=== PATIENT | female | born 1945 | race Caucasian/White ===

== ENCOUNTER 2017-07-18 10:55 | Outpatient (CLI) | payer MEDICARE, OTHER ==
[2017-07-18] MEDS ORDERED: Iopamidol 370 76% 100 ML VIAL ONE (14:54)
== END 2017-07-18 10:56 | disposition home or self-care (01) ==
LOC: BICCT 10:55
PROVIDERS: ATTEND Surgery
DX: R91.8 Other nonspecific abnormal finding of lung field (principal)
CPT/HCPCS: 71260; 82565

== ENCOUNTER 2017-08-25 09:53 | Outpatient (CLI) | payer MEDICARE, OTHER ==
[~2017-08-25 09:53] MED LIST: Iopamidol 370 76% 100 ML VIAL ONE
--- NOTE | 2017-08-25 15:11 | CT ---
ABDOMEN AND PELVIS CT SCAN WITH IV CONTRAST: HISTORY: A 72-year-old male with left lower quadrant pain for five days. History of diverticulitis. Prior ch olecystectomy. FINDINGS: The lung bases appear clear of acute process. A very small amount of pericardial fluid. A small hia cory hernia. Status post cholecystectomy without ductal dilatation. Unremarkable liver. Pancreas, s pleen, and adrenal glands are unremarkable. Possible very tiny, nonobstructing right renal calculus. Small bilateral renal cysts. No evidence for obstructing genitourinary calculus. There is scatter ed colonic diverticulosis. In the region of the mid left colon, there is some minimal pericolonic fa t stranding and some mild focal wall thickening, which certain is a finding that can be seen with ass ociated minimal acute diverticulitis. No evidence of extraluminal gas. No evidence for a drainable abscess or other significant fluid collection. No CT evidence for acute appendicitis. IMPRESSION: 1. Colonic diverticulosis with a small focus in the mid left colon of some minimal wall thickening a nd pericolonic fat stranding, evidence for minimal early diverticulitis, without evidence of extralum inal gas, drainable abscess, or other fluid collection. 2. Small bilateral renal cysts with probably very tiny punctate right lower pole renal calculus. 3. Small hiatal hernia. 4. Other findings as above. POS: [facility]
== END 2017-08-25 09:54 | disposition home or self-care (01) ==
LOC: SCSCT 09:53
PROVIDERS: ATTEND Surgery
DX: R10.9 Unspecified abdominal pain (principal); K57.30 Diverticulosis of large intestine without perforation or abscess without bleeding; N28.1 Cyst of kidney, acquired; K44.9 Diaphragmatic hernia without obstruction or gangrene; K57.92 Diverticulitis of intestine, part unspecified, without perforation or abscess without bleeding; Z90.49 Acquired absence of other specified parts of digestive tract; Z87.19 Personal history of other diseases of the digestive system
CPT/HCPCS: 74177

== ENCOUNTER 2017-09-26 10:14 | Inpatient (IN) | payer MEDICARE, OTHER ==
[2017-09-23 12:55] VITALS: BMI 34.2
[2017-09-26] MEDS ORDERED: Dexamethasone 4 mg/ml Vial ONE (10:26)
[2017-09-26] MEDS ORDERED: Midazolam HCl 2 mg/2 ml Vial ONE (10:26)
[2017-09-26] MEDS ORDERED: Fentanyl 100 MCG/2 ML VIAL ONE ×5 (10:26→17:39)
[2017-09-26] MEDS ORDERED: Lidocaine 1% (PF) 30 ML VIAL ONE (10:26)
[2017-09-26] MEDS ORDERED: Bupivacaine/Epinephrine 0.25% 30 ML VIAL ONE (11:03)
[2017-09-26] MEDS ORDERED: Sodium Chloride 0.9% 100 ML ONE (11:17)
[2017-09-26] MEDS ORDERED: cefOXitin 2 GM VIAL ONE ×2 (11:17→13:58)
[2017-09-26 11:31] LABS: #Eosinphils 0.1 thou/uL (0.0-0.7); #Lymphocytes 1.7 thou/uL (1.20-3.40); #Monocytes 0.5 thou/uL (0.11-0.59); #Neutrophils 2.8 thou/uL (1.40-6.50); %Basophils 0.5 % (0.0-1.0); %Eosinophils 1.2 % (0.0-10.0); %Lymphocytes 33.3 % (21.0-51.0); %Neutrophils 56.1 % (42.0-75.0); Mean Corpuscular HGB CONC 34.7 g/dL (32.0-36.0); Mean Corpuscular Hemoglobin 32.7 pg (27.0-31.0); Mean Corpuscular Volume 94.4 fL (78.0-98.0); Mean Platelet Volume 7.5 fL (7.4-10.4); Platelet Count 191 thou/uL (130-400); RBC Distribution Width 12.2 % (11.5-14.5); Red Blood Cell (RBC) Count 3.98 mill/uL (4.20-5.40); White Blood Cell (WBC) Count 5.1 thou/uL (4.8-10.8)
[2017-09-26] MEDS ORDERED: PHENYLEPHRINE-NS 100 MCG/ML 10 ML SYRINGE ONE (11:38)
[2017-09-26] MEDS ORDERED: PROPOFOL 200 MG/20 ML VIAL ONE (11:38)
[2017-09-26] MEDS ORDERED: Glycopyrrolate 0.2 MG/ML 5 ML SYRINGE ONE (11:38)
[2017-09-26] MEDS ORDERED: Lidocaine 1% PF 5 ML VIAL ONE (11:38)
[2017-09-26] MEDS ORDERED: Succinylcholine Chloride 20 MG/ML 10 ml SYRINGE FS ONE (11:38)
[2017-09-26] MEDS ORDERED: Dexmedetomidine 200 MCG/2 ML VIAL ONE (11:43)
[2017-09-26 12:15] LABS: Anion Gap 14 mmol/L (10-20); BUN (Urea Nitrogen) 14 mg/dL (9.8-20.1); Calc. Creatinine Clearance 109 mL/min (70-130); Calcium 9.6 mg/dL (7.8-10.44); Carbon Dioxide 22 mmol/L (23-31); Chloride 110 mmol/L (98-107); Estimated GFR-MDRD 81; Glucose 103 mg/dL (83-110); Potassium 3.6 mmol/L (3.5-5.1); Sodium 142 mmol/L (136-145)
[2017-09-26] MEDS ORDERED: Ondansetron HCl/PF 4 MG/2 ML Vial IVP PRN ×3 (12:28→16:04)
[2017-09-26] MEDS ORDERED: Promethazine HCl 25 MG/ML VIAL SLOW IVP PRN ×2 (12:28→15:21)
[2017-09-26] MEDS ORDERED: Promethazine HCl 25 MG/ML VIAL IM PRN ×2 (15:21→16:04)
[2017-09-26] MEDS ORDERED: hydrALAZINE 20 MG/ML VIAL SLOW IVP PRN (16:04)
[2017-09-26] MEDS ORDERED: Nitroglycerin 0.4 MG TAB (25 Tab Bottle) SL PRN (16:09)
[2017-09-26] MEDS ORDERED: LEVALBUTEROL TARTRATE INH PRN (18:15)
[2017-09-26] MEDS: Acetaminophen 1,000 MG in Premix Bag 1 BAG IVPB SCH ×2 (18:58→23:57)
[2017-09-26] MEDS: D5 1/2 NS w/20 mEq KCL 1,000 ML IV SCH (19:12)
[2017-09-26] MEDS: Famotidine 20 MG TAB PO SCH (20:13)
[2017-09-26] MEDS: Losartan 25 MG TAB PO SCH (20:17)
[2017-09-26] MEDS: Famotidine/PF 20 mg/2ml Vial SLOW IVP SCH (20:17)
[2017-09-26] MEDS ORDERED: AZELASTINE HCL EA NARE SCH (21:00)
[2017-09-26] MEDS ORDERED: DICLOFENAC SODIUM 1% GEL TOP SCH (21:00)
[2017-09-26] MEDS: cefOXitin 2 GM in Sodium Chloride 0.9% 100 ML IVPB SCH (21:08)
[2017-09-27] MEDS ORDERED: Levalbuterol HCl 1.25 MG/0.5 ML NEB NEB PRN (03:29)
[2017-09-27] MEDS: D5 1/2 NS w/20 mEq KCL 1,000 ML IV SCH ×4 (04:34→22:55)
[2017-09-27] MEDS: Acetaminophen 1,000 MG in Premix Bag 1 BAG IVPB SCH ×3 (05:40→13:22)
[2017-09-27] MEDS: cefOXitin 2 GM in Sodium Chloride 0.9% 100 ML IVPB SCH (05:40)
[2017-09-27 06:34] LABS: #Lymphocytes 1.1 thou/uL (1.20-3.40); #Monocytes 0.4 thou/uL (0.11-0.59); #Neutrophils 7.4 thou/uL (1.40-6.50); %Basophils 0.3 % (0.0-1.0); %Eosinophils 0.2 % (0.0-10.0); %Lymphocytes 11.8 % (21.0-51.0); %Monocytes 4.1 % (0.0-10.0); %Neutrophils 83.5 % (42.0-75.0); Anion Gap 12 mmol/L (10-20); BUN (Urea Nitrogen) 14 mg/dL (9.8-20.1); Calc. Creatinine Clearance 105 mL/min (70-130); Calcium 9.4 mg/dL (7.8-10.44); Carbon Dioxide 22 mmol/L (23-31); Chloride 109 mmol/L (98-107); Estimated GFR-MDRD 77; Glucose 202 mg/dL (83-110); Hemoglobin 12.7 g/dL (12.0-16.0); Mean Corpuscular HGB CONC 33.4 g/dL (32.0-36.0); Mean Corpuscular Volume 95.8 fL (78.0-98.0); Mean Platelet Volume 7.7 fL (7.4-10.4); Platelet Count 196 thou/uL (130-400); Potassium 4.3 mmol/L (3.5-5.1); RBC Distribution Width 12.3 % (11.5-14.5); Red Blood Cell (RBC) Count 3.97 mill/uL (4.20-5.40); Sodium 139 mmol/L (136-145); White Blood Cell (WBC) Count 8.9 thou/uL (4.8-10.8)
--- NOTE | 2017-09-27 06:58 | EKG ---
Test Reason : PREOP Blood Pressure : / mmHG Vent. Rate : 085 BPM Atrial Rate : 085 BPM P-R Int : 000 ms QRS Dur : 084 ms QT Int : 402 ms P-R-T Axes : 000 073 -87 degrees QTc Int : 478 ms Demand pacemaker; interpretation is based on intrinsic rhythm ,Ventricular paced rhythm. Atrial fibrillation with premature ventricular or aberrantly conducted complexes Low voltage QRS Prolonged QT Abnormal ECG No previous ECGs available Confirmed by JARROD CEDILLO ([id number]) on 09/27/2017 6:58:24 AM Referred By: CATALINA Confirmed By:JARROD CEDILLO
[2017-09-27] MEDS: Famotidine/PF 20 mg/2ml Vial SLOW IVP SCH ×2 (08:50→21:41)
[2017-09-27] MEDS: Enoxaparin Sodium 40 MG/0.4 ML SYRINGE SC SCH (08:50)
[2017-09-27] MEDS: Montelukast Sodium 10 mg Tablet PO SCH (08:50)
[2017-09-27] MEDS: Famotidine 20 MG TAB PO SCH ×2 (10:14→22:54)
--- NOTE | 2017-09-27 18:33 | PDOC.GSPN ---
Surgery Progress Note: Subj - Subjective Narrative: Feels OK. Hurts to walk but pain controlled at rest w ofirmev only. No flatus but feels rumbling. Mae ice chips w/o N/V. A/P) Doing well, awaiting return of bowel fxn. Prophylactic lovenox today, restart full dose tomorrow. Surgery Progress Note: Obj - Vital signs Vital signs: Vital Signs - Most Recent Temp Pulse Resp BP Pulse Ox 98.7 F 84 18 127/79 93 L 09/27/17 16:32 09/27/17 16:32 09/27/17 16:32 09/27/17 16:32 09/27/17 16:32 Surgery Progress Note: Results - Labs Result Diagrams: 09/27/17 05:37 09/27/17 05:37 Lab results: Laboratory Results - last 24 hr 09/27/17 09/27/17 05:37 05:37 WBC 8.9 RBC 3.97 L Hgb 12.7 Hct 38.1 MCV 95.8 MCH 32.0 H MCHC 33.4 RDW 12.3 Plt Count 196 MPV 7.7 Neutrophils % 83.5 H Lymphocytes % 11.8 L Monocytes % 4.1 Eosinophils % 0.2 Basophils % 0.3 Neutrophils # 7.4 H Lymphocytes # 1.1 L Monocytes # 0.4 Eosinophils # 0.0 Basophils # 0.0 Sodium 139 Potassium 4.3 Chloride 109 H Carbon Dioxide 22 L Anion Gap 12 BUN 14 Creatinine 0.74 Estimated GFR (MDRD) 77 Glucose 202 H Calcium 9.4
[2017-09-27] MEDS: Losartan 25 MG TAB PO SCH (21:42)
[2017-09-28 06:20] LABS: #Monocytes 0.6 thou/uL (0.11-0.59); #Neutrophils 7.8 thou/uL (1.40-6.50); %Basophils 0.1 % (0.0-1.0); %Eosinophils 0.1 % (0.0-10.0); %Lymphocytes 19.2 % (21.0-51.0); %Neutrophils 74.7 % (42.0-75.0); Hemoglobin 12.2 g/dL (12.0-16.0); Mean Corpuscular HGB CONC 33.6 g/dL (32.0-36.0); Mean Corpuscular Hemoglobin 32.3 pg (27.0-31.0); Mean Platelet Volume 7.5 fL (7.4-10.4); Platelet Count 193 thou/uL (130-400); RBC Distribution Width 12.4 % (11.5-14.5); Red Blood Cell (RBC) Count 3.77 mill/uL (4.20-5.40); White Blood Cell (WBC) Count 10.4 thou/uL (4.8-10.8)
[2017-09-28] MEDS: Famotidine 20 MG TAB PO SCH ×2 (09:07→20:10)
[2017-09-28] MEDS ORDERED: traMADol HCl 50 MG TAB PO PRN (09:57)
[2017-09-28] MEDS ORDERED: Enoxaparin Sodium 100 MG/ML SYRINGE SC SCH (10:15)
[2017-09-28] MEDS: Famotidine/PF 20 mg/2ml Vial SLOW IVP SCH ×2 (10:29→20:10)
[2017-09-28] MEDS: Montelukast Sodium 10 mg Tablet PO SCH (10:29)
[2017-09-28] MEDS: traMADol HCl 50 MG TAB PO PRN ×2 (10:29→17:01)
[2017-09-28] MEDS: Enoxaparin Sodium 40 MG/0.4 ML SYRINGE SC SCH (10:37)
[2017-09-28] MEDS: D5 1/2 NS w/20 mEq KCL 1,000 ML IV SCH ×2 (10:58→16:59)
--- NOTE | 2017-09-28 15:33 | PDOC.GSPN ---
Surgery Progress Note: Subj - Subjective Narrative: Patient is doing all right. Her pain is a little better than yesterday although she is still having a lot of discomfort when she gets up and moves around. She also complains of gas pains in her upper abdomen and has been burping a bit. She has felt rumblings but has not passed flatus yet. No nausea or vomiting. She is afebrile with normal vital signs. Urine output has not been quantified as she is incontinent. She does feel like she is emptying her bladder normally. H&H this morning were stable so she was started on full dose Lovenox. Her incisions are clean with some minimal bruising. Her abdomen is soft although slightly distended. Bowel sounds are present. Assessment/plan: Doing well status post sigmoid colectomy. Awaiting return of bowel function. Patient has already ambulated in the hallways 3 times today. I will check a postvoid residual to make sure that she is emptying her bladder completely. Her incontinence is mostly related to mobility issues and not having enough time to make it to the bathroom. Surgery Progress Note: Obj - Vital signs Vital signs: Vital Signs - Most Recent Temp Pulse Resp BP Pulse Ox 98.3 F 92 15 123/87 92 L 09/28/17 12:13 09/28/17 12:13 09/28/17 12:13 09/28/17 12:13 09/28/17 12:13 Surgery Progress Note: Results - Labs Result Diagrams: 09/28/17 05:50 09/27/17 05:37 Lab results: Laboratory Results - last 24 hr 09/28/17 05:50 WBC 10.4 RBC 3.77 L Hgb 12.2 Hct 36.2 MCV 96.0 MCH 32.3 H MCHC 33.6 RDW 12.4 Plt Count 193 MPV 7.5 Neutrophils % 74.7 Lymphocytes % 19.2 L Monocytes % 6.0 Eosinophils % 0.1 Basophils % 0.1 Neutrophils # 7.8 H Lymphocytes # 2.0 Monocytes # 0.6 H Eosinophils # 0.0 Basophils # 0.0
[2017-09-28] MEDS ORDERED: Zolpidem Tartrate 5 MG TAB PO PRN (15:47)
[2017-09-28] MEDS ORDERED: Furosemide 20 MG TAB PO SCH (17:00)
[2017-09-28] MEDS: Enoxaparin Sodium 100 MG/ML SYRINGE SC SCH (20:10)
[2017-09-28] MEDS: Losartan 25 MG TAB PO SCH (20:10)
[2017-09-29] MEDS: traMADol HCl 50 MG TAB PO PRN ×4 (01:04→21:40)
[2017-09-29] MEDS: D5 1/2 NS w/20 mEq KCL 1,000 ML IV SCH ×3 (04:01→18:22)
[2017-09-29 05:41] LABS: #Basophils 0.1 thou/uL (0.0-0.2); #Eosinphils 0.1 thou/uL (0.0-0.7); #Lymphocytes 2.6 thou/uL (1.20-3.40); #Monocytes 0.5 thou/uL (0.11-0.59); #Neutrophils 6.8 thou/uL (1.40-6.50); %Basophils 0.5 % (0.0-1.0); %Eosinophils 0.6 % (0.0-10.0); %Lymphocytes 25.7 % (21.0-51.0); %Monocytes 5.2 % (0.0-10.0); Hemoglobin 12.2 g/dL (12.0-16.0); Mean Corpuscular HGB CONC 34.5 g/dL (32.0-36.0); Mean Corpuscular Hemoglobin 32.9 pg (27.0-31.0); Mean Corpuscular Volume 95.2 fL (78.0-98.0); Mean Platelet Volume 7.6 fL (7.4-10.4); Platelet Count 191 thou/uL (130-400); RBC Distribution Width 12.2 % (11.5-14.5); Red Blood Cell (RBC) Count 3.72 mill/uL (4.20-5.40)
[2017-09-29 05:54] LABS: Anion Gap 13 mmol/L (10-20); BUN (Urea Nitrogen) 4 mg/dL (9.8-20.1); Calc. Creatinine Clearance 114 mL/min (70-130); Calcium 9.3 mg/dL (7.8-10.44); Carbon Dioxide 25 mmol/L (23-31); Chloride 106 mmol/L (98-107); Estimated GFR-MDRD 85; Glucose 109 mg/dL (83-110); Potassium 3.7 mmol/L (3.5-5.1); Sodium 140 mmol/L (136-145)
[2017-09-29] MEDS: Famotidine/PF 20 mg/2ml Vial SLOW IVP SCH ×2 (08:12→21:41)
[2017-09-29] MEDS: Furosemide 40 MG TAB PO SCH (08:15)
[2017-09-29] MEDS: Montelukast Sodium 10 mg Tablet PO SCH (08:15)
[2017-09-29] MEDS: Enoxaparin Sodium 100 MG/ML SYRINGE SC SCH ×2 (08:16→21:41)
[2017-09-29] MEDS: Famotidine 20 MG TAB PO SCH ×2 (08:16→21:41)
--- NOTE | 2017-09-29 19:12 | PDOC.GSPN ---
Surgery Progress Note: Subj - Subjective Narrative: Patient is feeling "much better" today. She has passed gas and had several bowel movements. She is concerned that her oxygen levels dropping during the night even though she is using her CPAP. She is using her incentive spirometer and pulling up to 2250ml. her incision is clean dry and intact and she is less tender to palpation. Assessment/plan: Doing well. Bowel function is resuming and we will advance her diet. As long as she is breathing alright and tolerating her diet she may go home tomorrow. 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 Surgery Progress Note: Obj - Vital signs Vital signs: Vital Signs - Most Recent Temp Pulse Resp BP Pulse Ox 98.1 F 90 15 118/82 92 L 09/29/17 15:19 09/29/17 15:19 09/29/17 15:19 09/29/17 15:19 09/29/17 15:19 Surgery Progress Note: Results - Labs Result Diagrams: 09/29/17 05:03 09/29/17 05:03
[2017-09-29] MEDS: Losartan 25 MG TAB PO SCH (21:41)
[2017-09-30] MEDS: D5 1/2 NS w/20 mEq KCL 1,000 ML IV SCH ×2 (03:48→06:00)
[2017-09-30 05:47] LABS: #Eosinphils 0.1 thou/uL (0.0-0.7); #Monocytes 0.4 thou/uL (0.11-0.59); #Neutrophils 3.6 thou/uL (1.40-6.50); %Basophils 0.4 % (0.0-1.0); %Eosinophils 2.2 % (0.0-10.0); %Lymphocytes 32.5 % (21.0-51.0); %Monocytes 5.8 % (0.0-10.0); %Neutrophils 59.1 % (42.0-75.0); Hemoglobin 11.3 g/dL (12.0-16.0); Mean Corpuscular HGB CONC 35.1 g/dL (32.0-36.0); Mean Corpuscular Hemoglobin 33.2 pg (27.0-31.0); Mean Corpuscular Volume 94.6 fL (78.0-98.0); Mean Platelet Volume 7.4 fL (7.4-10.4); Platelet Count 158 thou/uL (130-400); RBC Distribution Width 11.9 % (11.5-14.5); Red Blood Cell (RBC) Count 3.41 mill/uL (4.20-5.40); White Blood Cell (WBC) Count 6.1 thou/uL (4.8-10.8)
[2017-09-30] MEDS: traMADol HCl 50 MG TAB PO PRN ×2 (05:59→14:53)
[2017-09-30] MEDS: Enoxaparin Sodium 100 MG/ML SYRINGE SC SCH (08:40)
[2017-09-30] MEDS: Furosemide 40 MG TAB PO SCH (08:40)
[2017-09-30] MEDS: Montelukast Sodium 10 mg Tablet PO SCH (08:40)
[2017-09-30] MEDS: Famotidine 20 MG TAB PO SCH (08:40)
[2017-09-30] MEDS: Famotidine/PF 20 mg/2ml Vial SLOW IVP SCH (08:43)
[2017-09-30 16:02] VITALS: BP 108/68; TEMP 97.8
--- NOTE | 2017-10-05 19:00 | PDOC.OP ---
Operative Note - Operative Note Operative Note: PROCEDURE: Laparoscopic hand-assisted sigmoid colectomy DATE OF PROCEDURE: 09/26/2017 SURGEON: Vinod Combs M.D. PREOPERATIVE DIAGNOSES: Multiply recurrent sigmoid diverticulitis POSTOPERATIVE DIAGNOSIS: Multiple recurrent sigmoid diverticulitis HISTORY: Patient is had over 6 episodes of sigmoid diverticulitis in the past year. She has decided to proceed with laparoscopic hand-assisted sigmoid colectomy. PROCEDURE IN DETAIL: After informed consent was obtained and appropriate bowel preparation and antibiotics administered, the patient was taken to the operating room she was placed in supine position and general endotracheal anesthesia was administered. She was then placed in lithotomy position with appropriate padding and support of the legs. Weiner catheter and OG tube were placed and she was prepped and draped in standard sterile fashion including the perineum. Preoperative tap blocks had been administered. A 6 cm periumbilical incision was made and dissection carried down to the fascia which was incised in the midline. The peritoneal cavity was entered under direct vision and confirmed to be free of adhesions. A GelPort was placed and covered dissected gas insufflated through a 5 mm port in the GelPort to an intra-abdominal pressure 15 which the patient tolerated well. The laparoscope was advanced into the abdominal cavity which was carefully examined. There were no significant adhesions. Dissecting trochars were placed in the epigastric, right lower quadrant, and left lateral abdominal positions under direct laparoscopic vision. The cecum and small intestine were retracted up out of the pelvis and the sigmoid and descending colon were examined and palpated. There was a thickened segment of proximal sigmoid colon but the remainder of the descending and sigmoid colon appeared normal. The rectum appeared normal as well. The white line of Toldt was incised and the colon mobilized medially. The splenic flexure was carefully taken down using LigaSure. Once the colon was mobilized adequately for the descending colon to reach the upper rectum, the colon was transected just proximal to the inflamed segment of sigmoid colon and the mesentery divided close to the colon wall. The left ureter was clearly palpated in the retroperitoneum well away from the area of dissection. The dissection was carried down to the upper rectum and the mesorectum divided down to the wall of the rectum which was cleared circumferentially and divided with the laparoscopic stapler. The sigmoid colon was removed and marked for orientation and sent to pathology. The descending colon was again confirmed to reach easily down to the upper rectum without tension. The end of the descending colon was then externalized through the wound protector and towels were placed circumferentially. The staple line was resected and a pursestring suture placed around the end of the colon. The descending colon was sequentially interrogated with sizers and easily accepted up to a 33 mm sizer. The 33 mm EEA scope was obtained and the anvil placed into the end of the descending colon and the pursestring suture secured. The fatty tissue overlying the ampulla was cleared using Bovie electrocautery and the end of the descending colon placed back into the abdominal cavity and gown and gloves were changed.. The sizers were then passed transanally to the end of the rectal pouch and again the 33 mm sizer easily passed. The EEA stapler was then placed transanally and advanced to the end of the rectal pouch. The stalk was advanced just anterior to the staple line through the end of the rectal pouch and mated to the anvil. The orientation of the colon was examined and the mesentery was correctly oriented without twisting. The stapler was then closed and held in this position to allow edema to subside. The stapler was then fired and again held in this position. The stapler was then loosened to allow passage of the anvil and the entire device removed. Both donuts were full-thickness and intact. The descending colon was digitally occluded proximal to the staple line and saline instilled into the pelvis. Gas was insufflated into the rectum using the proctoscope and the rectum and staple line distended well. There was no bubbling of gas and no evidence of leak. The abdominal cavity was easily irrigated to clear and the omentum drawn down over the intestines. The 12 mm port in the right lower quadrant was withdrawn and the fascial defect closed under direct laparoscopic vision with a 0 Vicryl suture using a GraNee needle. The right lateral and epigastric trochars were then removed and hemostasis verified. The GelPort was removed and Seprafilm placed between the omentum and anterior abdominal wall. The fascia was closed with a running 0 PDS suture and the subcutaneous tissues copiously irrigated. Skin incisions were closed with running 4-0 subcuticular Monocryl sutures and Dermabond dressings were placed. Estimated blood loss was minimal. There were no complications. Specimen is sigmoid colon.
--- NOTE | 2017-10-07 16:32 | PQF ---
[employer] Supervisor [employer] ViewerBRISEYDA LEUNG KIMIYE MD [id number] SURG A- [id number] CLINICAL DOCUMENTATION CLARIFICATION FORM: POST DISCHARGE Please exercise your independent, professional judgment in responding to the clarification form. Clinical indicators are provided on the bottom of this form for your review. Thank you. Please check appropriate box(s): HEART FAILURE: A. TYPE: [ ] Systolic / HFrEF [ ] Diastolic / HFpEF [ ] Combined Systolic / Diastolic B. ACUITY [ ] Acute [ ] Acute on Chronic [ ] Chronic [ ] Other diagnosis [ ] Unable to determine In addition, please specify: Present on Admission (POA): [ ] Yes [ ] No [ ] Unable to determine For continuity of documentation, please document condition throughout progress notes and discharge summary. Thank You. CLINICAL INDICATORS - SIGNS / SYMPTOMS / LABS history of CHF - [facility] med recon lists home medication of furosemide 40mg daily RISKS: History of afib TREATMENTS: Furosemide 40mg 09/29/17 & 09/30/17 home meds listed on med recon - Furosemide 40mg (This form is maintained as a part of the permanent medical record) 2014 [employer], [employer]. All Rights Reserved [employer] Supervisor [employer] Kirby Parker, CCS, POWER MANAGER, CASC [email or web address]
== END 2017-09-30 18:27 | disposition home or self-care (01) | DRG 331 ==
LOC: SURG A 10:21
PROVIDERS: ADMIT Surgery; ATTEND Surgery
PROC: 0DTN0ZZ Resection of Sigmoid Colon, Open Approach (ICD-10-PCS; principal; 2017-09-26)
DX: K57.32 Diverticulitis of large intestine without perforation or abscess without bleeding (principal); K21.9 Gastro-esophageal reflux disease without esophagitis; I48.91 Unspecified atrial fibrillation; I50.9 Heart failure, unspecified; G47.30 Sleep apnea, unspecified; I73.9 Peripheral vascular disease, unspecified; Z79.01 Long term (current) use of anticoagulants; Z79.899 Other long term (current) drug therapy; Z87.19 Personal history of other diseases of the digestive system; Z86.718 Personal history of other venous thrombosis and embolism; Z90.49 Acquired absence of other specified parts of digestive tract
CPT/HCPCS: 36415; 36416; 80048; 85025; 88307; 93005; 93010; J0131; J0694; J1100; J1650; J2001; J2250; J2704; J3010; J7050; S0028

== ENCOUNTER 2017-11-08 09:29 | Outpatient (CLI) | payer MEDICARE, OTHER ==
--- NOTE | 2017-11-11 12:31 | RAD ---
MODIFIED BARIUM SWALLOW PERFORMED WITH SPEECH THERAPY: HISTORY: Dysphagia following cerebrovascular disease and unspecified dysphagia with feeding difficulties. FINDINGS: The patient was given puree and nectar thick liquid via cup, thin liquid via cup and straw, regular t exture food, and barium tablet. This demonstrated some mild premature spillage to the vallecula with some thin and nectar thick liquid. There is flash penetration demonstrated with thin liquid. No as piration was even seen on this exam. IMPRESSION: No signs off aspiration. Some mild spillage to the vallecular level was seen in flash penetration wi th thin liquid. POS: [facility]
== END 2017-11-08 09:30 | disposition home or self-care (01) ==
PROVIDERS: ATTEND Internal Medicine
DX: I69.991 Dysphagia following unspecified cerebrovascular disease (principal); R13.10 Dysphagia, unspecified; R63.3 Feeding difficulties
CPT/HCPCS: 74230; G8996-GN-CI; G8997-GN-CI; G8998-GN-CI

== ENCOUNTER 2018-02-24 13:11 | Outpatient (CLI) | payer MEDICARE, OTHER ==
--- NOTE | 2018-02-24 14:24 | RAD ---
RADIOGRAPH CHEST 2 VIEWS: Date: 02/24/2018. Time: 1:16 p.m. HISTORY: A 72-year-old female with dyspnea, unspecified. COMPARISON: 12/07/2016. FINDINGS: Cardiac size is at the upper limits of normal. No pulmonary venous engorgement. No pulmonary edema, consolidation, pleural effusion, or pneumothorax. Ectasia and tortuosity of the thoracic aorta. Du al-lead left subclavian pacemaker. No interval change. IMPRESSION: 1. Cardiomegaly without congestive heart failure. 2. Pacemaker. 3. Ectasia and tortuosity of the thoracic aorta. 4. No acute pulmonary findings. JN [] POS: [facility]
== END 2018-02-24 13:12 | disposition home or self-care (01) ==
LOC: RAD 13:11
PROVIDERS: ATTEND Internal Medicine Pulmonary Disease
DX: R06.00 Dyspnea, unspecified (principal); I77.810 Thoracic aortic ectasia; I77.1 Stricture of artery; I51.7 Cardiomegaly; Z95.0 Presence of cardiac pacemaker
CPT/HCPCS: 71046

== ENCOUNTER 2018-08-21 10:18 | Outpatient (CLI) | payer MEDICARE, OTHER ==
--- NOTE | 2018-08-21 12:47 | RAD ---
CHEST 2 VIEWS: HISTORY: Dyspnea. COMPARISON: 02/24/2018 study. FINDINGS: Heart size is borderline with a pacemaker. The lungs show some mild chronic change. There are arthr itic changes of the spine. The bone appear demineralized. IMPRESSION: Stable exam. POS: [facility]
== END 2018-08-21 10:19 | disposition home or self-care (01) ==
LOC: RAD 10:18
PROVIDERS: ATTEND Internal Medicine Pulmonary Disease
DX: R06.00 Dyspnea, unspecified (principal)
CPT/HCPCS: 71046

== ENCOUNTER 2020-06-18 12:36 | Outpatient (CLI) | payer MEDICARE, OTHER ==
[2020-06-18] MEDS ORDERED: Iopamidol 370 76% 100 ML VIAL ONE (14:58)
== END 2020-06-18 12:37 | disposition home or self-care (01) ==
LOC: BICCT 12:36
PROVIDERS: ATTEND Obstetrics & Gynecology
DX: R91.1 Solitary pulmonary nodule (principal)
CPT/HCPCS: 71260; 82565; Q9967

== ENCOUNTER 2020-11-26 14:45 | Inpatient (IN) | payer MEDICARE, OTHER ==
[2020-11-26 15:50] LABS: #Eosinphils 0.1 thou/uL (0.0-0.7); #Lymphocytes 1.8 thou/uL (1.20-3.40); #Monocytes 0.5 thou/uL (0.11-0.59); %Basophils 0.4 % (0.0-1.0); %Eosinophils 1.6 % (0.0-10.0); %Lymphocytes 28.1 % (21.0-51.0); %Monocytes 7.7 % (0.0-10.0); %Neutrophils 62.2 % (42.0-75.0); Hemoglobin 13.4 g/dL (12.0-16.0); Mean Corpuscular HGB CONC 34.2 g/dL (32.0-36.0); Mean Corpuscular Hemoglobin 32.9 pg (27.0-31.0); Mean Corpuscular Volume 96.3 fL (78.0-98.0); Mean Platelet Volume 7.8 fL (7.4-10.4); Platelet Count 238 thou/uL (130-400); RBC Distribution Width 11.9 % (11.5-14.5); Red Blood Cell (RBC) Count 4.06 mill/uL (4.20-5.40); White Blood Cell (WBC) Count 6.5 thou/uL (4.8-10.8)
[2020-11-26 16:11] LABS: ALT (SGPT) 11 U/L (8-55); AST (SGOT) 14 U/L (5-34); Alkaline Phosphatase 68 U/L (40-110); Anion Gap 12 mmol/L (10-20); BUN (Urea Nitrogen) 11 mg/dL (9.8-20.1); Bilirubin, Total 0.5 mg/dL (0.2-1.2); Calc. Creatinine Clearance 0 mL/min (70-130); Calcium 9.2 mg/dL (7.8-10.44); Carbon Dioxide 27 mmol/L (23-31); Chloride 107 mmol/L (98-107); Globulin 2.3 g/dL (2.4-3.5); Glucose 95 mg/dL (83-110); Potassium 4.1 mmol/L (3.5-5.1); Protein, Total 6.3 g/dL (5.8-8.1); Sodium 142 mmol/L (136-145)
[2020-11-26] MEDS ORDERED: Nitroglycerin 2% Ointment 1 INCH/1 GM Packet ONE (18:29)
[2020-11-26] MEDS ORDERED: Ondansetron PF 4 MG/2 ML Vial IVP PRN (19:22)
[2020-11-26] MEDS ORDERED: Ondansetron ODT 4 MG TAB PO PRN (19:22)
[2020-11-26] MEDS ORDERED: Calcium Carbonate 500 MG ChewTAB PO PRN (19:22)
[2020-11-26] MEDS ORDERED: Nitroglycerin 0.4 MG TAB (25 Tab Bottle) SL PRN ×2 (19:22→19:42)
[2020-11-26] MEDS ORDERED: Albuterol 200 PUFF (6.7GM INHALER) INH PRN (20:23)
[2020-11-26] MEDS: Acetaminophen 325 MG TAB PO PRN (20:57)
[2020-11-26] MEDS: Losartan 25 MG TAB PO SCH (20:57)
[2020-11-26] MEDS: Montelukast Sodium 10 mg Tablet PO SCH (20:58)
[2020-11-26 21:06] VITALS: BMI 35.2
[2020-11-26 22:03] LABS: Troponin I 0.035 ng/mL (< 0.028)
[2020-11-26] MEDS ORDERED: Atorvastatin Calcium 40 MG TAB PO SCH (22:45)
[2020-11-27 05:17] LABS: Hemoglobin A1c 5.2 % (4.0-6.0)
[2020-11-27 05:34] LABS: Troponin I 0.014 ng/mL (< 0.028)
[2020-11-27 05:36] LABS: ALT (SGPT) 10 U/L (8-55); AST (SGOT) 14 U/L (5-34); Albumin 3.4 g/dL (3.4-4.8); Alkaline Phosphatase 62 U/L (40-110); Anion Gap 12 mmol/L (10-20); BUN (Urea Nitrogen) 10 mg/dL (9.8-20.1); Bilirubin, Total 0.5 mg/dL (0.2-1.2); Calc. Creatinine Clearance 94 mL/min (70-130); Calcium 8.9 mg/dL (7.8-10.44); Carbon Dioxide 24 mmol/L (23-31); Cardiac Risk 2.9 (Less than 4.5); Chloride 108 mmol/L (98-107); Cholesterol 108 mg/dl (< 200 Desired); Globulin 2.1 g/dL (2.4-3.5); Glucose 82 mg/dL (83-110); HDL Cholesterol 37 mg/dL (>60 Neg Risk); LDL Cholesterol, Calculated 53 mg/dL; Potassium 3.8 mmol/L (3.5-5.1); Protein, Total 5.5 g/dL (5.8-8.1); Sodium 140 mmol/L (136-145); Triglycerides 91 mg/dL (Less than 150)
[2020-11-27] MEDS: Potassium Chloride 10 MEQ TAB PO SCH ×2 (09:00→16:16)
[2020-11-27] MEDS ORDERED: EVOLOCUMAB 140 MG/ML SC SCH (09:00)
[2020-11-27] MEDS: Furosemide 40 MG TAB PO SCH ×2 (09:02→13:09)
[2020-11-27] MEDS: Escitalopram Oxalate 20 mg Tablet PO SCH (09:02)
[2020-11-27] MEDS: Bupropion 150 MG XL TAB PO SCH (09:02)
[2020-11-27] MEDS: Azelastine 137 MCG/Spray 30 ML NS SCH ×3 (09:03→19:52)
[2020-11-27] MEDS: Acetaminophen 325 MG TAB PO PRN (09:06)
[2020-11-27 12:12] LABS: SARS-CoV-2 PCR by NAA Not Detected (NotDetected)
[2020-11-27] MEDS: Rivaroxaban 10 MG TAB PO SCH (16:16)
[2020-11-27] MEDS: Montelukast Sodium 10 mg Tablet PO SCH (19:52)
[2020-11-27] MEDS: Losartan 25 MG TAB PO SCH (19:52)
[2020-11-27] MEDS ORDERED: Atorvastatin Calcium 40 MG TAB PO SCH (21:00)
[2020-11-28] MEDS: Acetaminophen 325 MG TAB PO PRN ×4 (00:59→22:08)
[2020-11-28] MEDS: Bupropion 150 MG XL TAB PO SCH (08:47)
[2020-11-28] MEDS: Furosemide 40 MG TAB PO SCH ×2 (08:48→14:48)
[2020-11-28] MEDS: Potassium Chloride 10 MEQ TAB PO SCH ×2 (08:48→17:00)
[2020-11-28] MEDS: Escitalopram Oxalate 20 mg Tablet PO SCH (08:48)
[2020-11-28] MEDS: Azelastine 137 MCG/Spray 30 ML NS SCH ×2 (08:48→20:18)
[2020-11-28] MEDS ORDERED: Regadenoson 0.4 MG/5 ML SYRINGE ONE (14:36)
[2020-11-28] MEDS: Rivaroxaban 10 MG TAB PO SCH (17:00)
[2020-11-28] MEDS: Losartan 25 MG TAB PO SCH (20:17)
[2020-11-28] MEDS: Montelukast Sodium 10 mg Tablet PO SCH (20:18)
[2020-11-29] MEDS: Acetaminophen 325 MG TAB PO PRN ×2 (08:16→16:59)
[2020-11-29] MEDS: Bupropion 150 MG XL TAB PO SCH (10:14)
[2020-11-29] MEDS: Potassium Chloride 10 MEQ TAB PO SCH ×2 (10:14→16:58)
[2020-11-29] MEDS: Escitalopram Oxalate 20 mg Tablet PO SCH (10:14)
[2020-11-29] MEDS: Furosemide 40 MG TAB PO SCH ×2 (10:15→15:21)
[2020-11-29] MEDS: Azelastine 137 MCG/Spray 30 ML NS SCH (10:15)
[2020-11-29 15:23] VITALS: BP 131/70; TEMP 97.6
[2020-11-29] MEDS: Rivaroxaban 10 MG TAB PO SCH (16:58)
== END 2020-11-29 17:15 | disposition home or self-care (01) | DRG 313 ==
LOC: ERS 14:45 → 2NO 17:32 → OBSVTOIN 11-28 11:07
PROVIDERS: ADMIT Family Medicine; ATTEND Family Medicine
DX: R07.89 Other chest pain (principal); I48.21 Permanent atrial fibrillation; I48.20 Chronic atrial fibrillation, unspecified; I11.0 Hypertensive heart disease with heart failure; I50.9 Heart failure, unspecified; E78.5 Hyperlipidemia, unspecified; I73.9 Peripheral vascular disease, unspecified; G47.33 Obstructive sleep apnea (adult) (pediatric); I49.5 Sick sinus syndrome; K21.9 Gastro-esophageal reflux disease without esophagitis; M19.90 Unspecified osteoarthritis, unspecified site; I25.10 Atherosclerotic heart disease of native coronary artery without angina pectoris; Z20.822 Contact with and (suspected) exposure to COVID-19; F32.9 Major depressive disorder, single episode, unspecified; Z88.5 Allergy status to narcotic agent; Z88.8 Allergy status to other drugs, medicaments and biological substances; Z79.899 Other long term (current) drug therapy; Z90.49 Acquired absence of other specified parts of digestive tract; Z98.49 Cataract extraction status, unspecified eye; Z95.0 Presence of cardiac pacemaker; Z86.718 Personal history of other venous thrombosis and embolism
CPT/HCPCS: 36415; 71045; 78452; 80053; 80061; 83036; 84443; 84484; 85025; 93005; 93017; 93306; 93880; 94760; A9500; G0378; J2785; U0003; U0005

== ENCOUNTER 2022-08-09 19:00 | Outpatient (CLI) | payer MEDICARE, OTHER | END 2022-08-09 19:01 | disposition home or self-care (01) | LOC: SLEEPLAB 19:00 | PROVIDERS: ATTEND Internal Medicine Critical Care Medicine | DX: G47.33 Obstructive sleep apnea (adult) (pediatric) (principal); R53.83 Other fatigue | CPT/HCPCS: 95811 ==

== ENCOUNTER 2022-08-24 10:30 | Outpatient (CLI) | payer MEDICARE, OTHER ==
[2022-08-24 12:50] LABS: #Eosinphils 0.2 10x3/uL (0.0-0.5); #Monocytes 0.5 10x3/uL (0.0-1.1); #Neutrophils 3.1 10x3/uL (1.5-8.4); %Basophils 0.7 % (0.0-2.0); %Eosinophils 3.9 % (0.0-6.0); %Lymphocytes 28.4 % (18.0-47.0); %Monocytes 8.5 % (0.0-10.0); %Neutrophils 58.1 % (40.0-75.0); Mean Corpuscular HGB CONC 31.6 g/dL (32.0-36.0); Mean Corpuscular Hemoglobin 30.8 pg (27.0-33.0); Mean Corpuscular Volume 97.6 fl (81.6-98.3); Mean Platelet Volume 9.9 fl (7.4-10.4); Platelet Count 257 10x3/uL (150-450); RBC Distribution Width 13.2 % (11.5-14.5); Red Blood Cell (RBC) Count 4.22 10x6/uL (3.90-5.03); White Blood Cell (WBC) Count 5.4 10x3/uL (3.5-10.5)
[2022-08-24 13:16] LABS: Anion Gap 13 mmol/L (10-20); BUN (Urea Nitrogen) 16 mg/dL (9.8-20.1); Calc. Creatinine Clearance 0 mL/min (70-130); Calcium 9.2 mg/dL (7.8-10.44); Carbon Dioxide 28 mmol/L (23-31); Chloride 108 mmol/L (98-107); Estimated GFR 70; Glucose 99 mg/dL (83-110); Potassium 4.5 mmol/L (3.5-5.1); Sodium 144 mmol/L (136-145)
== END 2022-08-24 10:31 | disposition home or self-care (01) ==
LOC: LABBT 10:30
PROVIDERS: ATTEND Specialist
DX: Z01.818 Encounter for other preprocedural examination (principal); K42.9 Umbilical hernia without obstruction or gangrene; R91.8 Other nonspecific abnormal finding of lung field
CPT/HCPCS: 71046; 80048; 85025; 93005; 93010